=== PATIENT | female | born 1980 | race Caucasian/White ===

== ENCOUNTER 2018-08-15 12:14 | Emergency (ER) | payer MEDICAID ==
[~2018-08-15] VITALS: Ht 157.5 cm; Wt 80.8 kg
[~2018-08-15 12:14] MED LIST: NAPR-685 PO
[2018-08-15 12:50] LABS: BASOPHILS # (AUTO) 0.06 x10^3/uL (0-0.1); BASOPHILS % (AUTO) 1 % (0-1); EOSINOPHILS # (AUTO) 0.21 x10^3/uL (0-0.4); EOSINOPHILS % (AUTO) 3 % (1-7); LYMPHOCYTES # (AUTO) 2.37 x10^3/uL (1-3.4); LYMPHOCYTES % (AUTO) 31 % (22-44); MD NO; MEAN CORPUSCULAR HEMOGLOBIN 28.7 pg (27.0-34.8); MEAN CORPUSCULAR HGB CONC 33.3 g/dL (32.4-35.8); MEAN CORPUSCULAR VOLUME 86.2 fL (80-100); MEAN PLATELET VOLUME 7.9 fL (7.4-10.4); MONOCYTES # (AUTO) 0.62 x10^3/uL (0.2-0.8); MONOCYTES % (AUTO) 8 % (2-9); NEUTROPHILS % (AUTO) 58 % (42-75); PLATELET COUNT 310 x10^3/uL (130-400); RED BLOOD COUNT 4.72 x10^6/uL (3.82-5.3); RED CELL DISTRIBUTION WIDTH 14.1 % (9.6-15.2)
[2018-08-15 13:00] LABS: ANION GAP 3 mmol/L (5-15); CALCIUM 8.5 mg/dL (8.5-10.1); CHLORIDE 108 mmol/L (98-107); CREATININE 0.79 mg/dL (0.55-1.02)
[2018-08-15 13:01] LABS: ALANINE AMINOTRANSFERASE 15 U/L (12-78); ALBUMIN 3.8 g/dL (3.4-5.0)
[2018-08-15 13:04] LABS: ALKALINE PHOSPHATASE 79 U/L (45-117); BILIRUBIN,TOTAL 0.4 mg/dL (0.2-1.0); TOTAL PROTEIN 7.3 g/dL (6.4-8.2)
--- NOTE | 2018-08-15 13:05 | NUR ---
CT WAITING ON IV TO PERFORM EXAM. MA
--- NOTE | 2018-08-15 13:17 | NUR ---
Pt to room from lobby.
[2018-08-15] MEDS ORDERED: MORPHINE SULFATE 4 MG/ML, 1ML IVPush PRN (14:00)
[2018-08-15] MEDS ORDERED: ONDANSETRON 2MG/ML, 2ML IVPush ONE (14:00)
[2018-08-15] MEDS ORDERED: ONDANSETRON 2MG/ML, 2ML ONE (14:16)
[2018-08-15] MEDS ORDERED: MORPHINE SULFATE 4 MG/ML, 1ML ONE (14:16)
[2018-08-15] MEDS ORDERED: OMNIPAQUE 350 MG/ML, 100ML BOTTLE ONE (14:19)
[2018-08-15 14:42] LABS: MICROSCOPIC NOT IND
[2018-08-15 14:47] LABS: CULTURE INDICATED? NO
[2018-08-15 15:23] VITALS: BP 131/64
== END 2018-08-15 15:25 | disposition home or self-care (01) ==
LOC: ED 13:54
DX: N83.291 Other ovarian cyst, right side (principal); R10.31 Right lower quadrant pain; R19.7 Diarrhea, unspecified
CPT/HCPCS: 36415; 74177; 80053; 81003; 84703; 85025; 96374; 96375; 99284; J2270; J2405; Q9967